=== PATIENT | female | born 1950 | race Caucasian/White ===

== ENCOUNTER 2016-12-02 14:09 | Inpatient (IN) ==
[2016-12-02] MEDS ORDERED: Nitroglycerin 0.4 MG TAB.SUBL SL PRN (14:42)
[2016-12-02] MEDS ORDERED: Fluticasone Propionate Nasal 50 MCG/SPRAY BOTTLE NS PRN (14:42)
--- NOTE | 2016-12-02 14:45 | Internal Med History&Physical ---
Date of Encounter: 12/03/16 Time of Encounter: 14:40 Assessment and Plan (1) Diabetes mellitus Current visit: No Status: Chronic She has a history of insulin-dependent diabetes and control. Hemoglobin A-1 C has been ordered. Her blodd sugars will be monitoered and insulin adjsuted as needed . On sliding scale Its important to have a decent control of her blood sugars for better healing and prevention of infection. Diabetic diet and other counseling provided . 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 She is in rehab rehab protocol will be initiated. We will keep an eye on infection and pain control. Qualifiers: Encounter type: subsequent encounter Fracture type: closed Laterality: left Fracture healing: with routine healing Qualified Code(s): S72.002D - Fracture of unspecified part of neck of left femur, subsequent encounter for closed fracture with routine healing (3) Anemia Current visit: No Status: Chronic History of chronic anemia. Will review your records. Apparently she is followed by hematologists. She did receive 2 units of packed red blood cells during surgery. At the present time she is stable Qualifiers: Anemia type: due to chronic kidney disease Chronic kidney disease stage: stage 3 (moderate) Qualified Code(s): N18.3 - Chronic kidney disease, stage 3 (moderate); D63.1 - Anemia in chronic kidney disease (4) CAD (coronary artery disease) Current visit: No Status: Chronic She has a history of coronary disease status post cavity 2014. She is on all appropriate medications. Present time she does not complain of any chest pain dyspnea) symptoms associated with with her coronaries. Plan is to continue her medications. Qualifiers: Coronary Disease-Associated Artery/Lesion type: bypass graft [place] vs. transplanted heart: [place] heart Associated angina: without angina Qualified Code(s): I25.810 - Atherosclerosis of coronary artery bypass graft(s) without angina pectoris (5) Chronic kidney disease Current visit: No Status: Chronic She has stage III and kidney disease. Will continue to monitor. At the present time she is stable. Qualifiers: Chronic kidney disease stage: stage 3 (moderate) Qualified Code(s): N18.3 - Chronic kidney disease, stage 3 (moderate) Internal Medicine - H&P: HPI Admitted From: Intrahospital Transfer History of present illness: Ms. Mas is a 66 year old female straws was transferred from [facility], status post left hip surgery on Saturday while walking she tripped over and hit concrete on left side and broke her hip. She has a history of coronary artery disease status post cabbage history of hypertension history of insulin- dependent diabetes. Now with complications such as peripheral neuropathy and retinopathy she has a history of macular degeneration on the left side for which she is followed by ophthalmologists. She denied any history of dizziness shortness of breath chest pain or weakness or symptoms suggestive of any stroke during her fall. She has a history of chronic anemia for which she is followed by music adapter. During her surgery she did receive a 2 units of packed RBCs. At the present time other than pain on her left side at the site of surgery she feels pretty good. She denies any chest pains nausea vomiting or diarrhea no complaints of any seizures headaches and dizziness or weakness in her arms or legs. Overall she feels well. Past Med Surg Social Fam HX - Past Medical History Medical history: CHF, coronary artery disease, CVA, diabetes, hyperlipidemia, hypertension, myocardial infarction, renal disease, thyroid disease Psychiatric history: no psych history - Past Surgical History Surgical History: coronary bypass (CABG), other (hystrectomy and oopherctomy) - Social History Smoking Status: Never smoker Smokeless Tobacco Status: No Alcohol use: none Drug use: none - Family History Mother Hx Family Cardiac Disorders: Yes (heart disease) Hx Family Endocrine Disorder: Yes (diabetes) Father Living Status: Still Living Hx Family Neuromuscular Disorders: (stroke) Internal Medicine - H&P: Meds Aspirin [Adult Low Dose Aspirin EC] 81 mg PO DAILY 07/25/15 [History] Docusate Sodium [Dok] 100 mg PO QAM 07/25/15 [History] Ergocalciferol (VITAMIN D2) [Vitamin D2 (50,000 UNIT)] 50,000 unit PO QWEEK 08/05 [History] Fluticasone Propionate Nasal [Flonase] 1 spray NS DAILY PRN 07/25/15 [History] Furosemide [Lasix] 60 mg PO DAILY 07/25/15 [History] Levothyroxine [Synthroid] 112 mcg PO 0630 07/25/15 [History] Loratadine [Claritin] 10 mg PO DAILY 07/25/15 [History] Nitroglycerin [Nitrostat] 0.4 mg SL Q5M PRN 07/25/15 [History] Clopidogrel [Plavix] 75 mg PO DAILY 06/12/16 [History] Isosorbide MONOnitrate [Isosorbide Mononitrate ER] 120 mg PO DAILY 06/12/16 [ History] Rosuvastatin Calcium [Crestor] 20 mg PO HS 06/12/16 [History] Insulin Lispro Protamin/Lispro [Humalog Mix 75-25 Kwikpen] 20 units SQ QPM 10/31 [History] Insulin Lispro Protamin/Lispro [Humalog Mix 75-25 Kwikpen] 30 unit SQ QAM [History] Acetaminophen [Tylenol] 500 mg PO Q6HR PRN 11/28/16 [History] Ferrous Gluconate 324 mg PO DAILY 11/28/16 [History] Metoprolol XL (24 HR) Succ [Toprol Xl] 50 mg PO BID 11/28/16 [History] traZODone [TraZODone] 50 mg PO HS 11/28/16 [History] Enoxaparin [Lovenox] 40 mg SQ DAILY #14 syr 12/01/16 [Rx] Gabapentin [Gralise] 300 mg PO BID #14 tab 12/02/16 [Rx] OxyCODONE Immed Rel [Roxicodone 5 MG] 5 mg PO Q4HR PRN #20 tab 12/02/16 [Rx] Allergies No Known Allergies Allergy (Verified 07/25/15 12:00) All Systems PM: A 10-system review of systems was performed and is negative for pertinent findings except as documented above in the HPI. - Constitutional Constitutional: falls, no anorexia, no chills, no excessive sweating, no fatigue , no malaise, no night sweats, no weakness, no weight gain Additional comments: She has history of frequent falls. She has a history of neuropathy and feels that occasionally she falls. She had been using walker when whenever needed. - EENT Eyes: change in vision, floaters, no decreased night vision, no diplopia, no discharge, no photophobia, no seeing flashes Additional comments: She feels that she she is occasionally see some floaters on her left eye. The history of macular degeneration of the left side and has been receiving injections. She also has a history of far retinopathy on both sides and has received our laser surgery is a bias by her laser beam cutter. Ears: no ear discharge, no ear pain, no tinnitus Nose, mouth and throat: no bleeding gums, no dental pain, no dysphagia, no facial pain, no neck mass, no sinus pain, no sore throat - Breasts Additional comments: No complaints of any discharge from her breasts or any masses. - Cardiovascular Cardiovascular ROS IM: dyspnea on exertion, no chest pain, no claudication, no diaphoresis, no dyspnea, no lightheadedness, no orthopnea, no palpitations, no paroxysmal nocturnal dyspnea, no syncope Additional comments: Her dyspnea is usually on exertion which she relates to her age. No associated chest pains. She has a history of coronary artery disease status post cavity 2015 and she has been doing well status post. . - Respiratory Respiratory: no cough, no dyspnea, no hemoptysis, no dyspnea on exertion, no wheezing, no snoring, no stridor, no pain on inspiration, no pain with cough - Gastrointestinal Gastrointestinal: no abdominal pain, no belching, no bloating, no change in bowel habits, no change in stool character, no constipation, no dysphagia, no heartburn, no hematemesis, no hematochezia, no loose stools, no melena, no vomiting - Genitourinary Genitourinary: amenorrhea, no breast change in shape, no breast mass, no breast swelling, no pelvic pain, no urinary frequency, no urinary hesitancy, no urinary incontinence Menstruation: post hysterectomy - Integumentary Integumentary IM: no non-healing lesions, no pruritus, no rash, no skin ulcer, no sores - Neurological Neurological ROS: numbness, paresthesias, weakness, no abnormal gait, no behavioral changes, no burning sensations, no confusion, no convulsions, no disequilibrium, no dizziness, no tremor(s) Additional comments: She has a long-standing history of insulin-dependent diabetes which has been in control. She has neuropathy on both legs and may be in her hands as well. She does complain of some tingling and dpoor proprioception specially when she walks. - Psychiatric Psychiatric: no confusion, no depression, no difficulty concentrating - Endocrine Endocrine IM: no cold intolerance, no polydipsia, no polyphagia Additional comments: She has a history of hypothyroidism. And his government on and is on medication. - Hematologic/Lymphatic Hematologic/Lymphatic: easy bruising - Constitutional Vitals: Temp Pulse Resp BP Pulse Ox 98.9 F 79 20 125/66 95 12/02/16 14:23 12/02/16 14:23 12/02/16 14:23 12/02/16 14:23 12/02/16 14:23 General appearance: Present: A&O X 3, pleasant, obese - Head Head exam: Present: atraumatic - Eye Eye exam: Present: EOMI, PERRL Pupils: Present: PERRL Additional comments: I examination is within normal limits. From the endoscopy not done. She has a history of retinopathy. - Neck Neck exam general surgery: Present: supple. Absent: lymphadenopathy, tenderness - Respiratory Respiratory exam: Present: CTAB. Absent: chest wall tenderness, rales, respiratory distress, rhonchi, stridor, wheezes, tachypnea - Cardiovascular Cardiovascular exam: Present: RRR. Absent: diastolic murmur, distant heart sounds, gallop, JVD - GI/Abdominal GI/Abdominal exam: Present: normal bowel sounds, soft. Absent: guarding, mass - Additional comments: Examination different not done. - Extremities Exam Extremities exam: Present: full ROM, warm. Absent: tenderness - Back Exam Back exam: Present: normal inspection Additional comments: No local tenderness appreciated. - Neurological Exam Neurological exam: Present: CN II-XII intact, reflexes normal, strengths equal and symetr throughout Additional comments: Her neurological examination is unremarkable criminals are intact. I was unable to assess the strength of low lymphocytes to 200 she is in century. However she was able to raise her left leg. Ankle strength on both sides equal. Upper limb strands are equal on both sides. Coordination acerebellar function seems appropriate and are within normal limits. - Skin Skin exam: Present: petechiae Additional comments: Toe Former and multiple places of small bruises noted most likely secondary to injections or IV sites. Internal Med - H&P Results - Labs CBC & Chem 7: 12/03/16 05:25 12/03/16 05:25
[2016-12-02] MEDS: Cholecalciferol (D-3) 1,000 UNIT TABLET PO SCH (15:38)
[2016-12-02] MEDS ORDERED: Insulin NPH/REG 70/30 100 UNIT/ML (x5UNIT) SQ SCH ×2 (18:00)
[2016-12-02] MEDS ORDERED: Insulin NPH/REG 70/30 300 UNIT/3 ML per UNIT SQ ONE (18:00)
[2016-12-02] MEDS ORDERED: INSULIN LISPRO PROTAMIN SQ SCH (18:00)
[2016-12-02] MEDS ORDERED: [UNRECOGNIZED DRUG - OTHER] SQ SCH (18:00)
[2016-12-02] MEDS ORDERED: LISPRO SQ SCH (18:00)
[2016-12-02] MEDS: *HR* OxyCODONE Immed Rel 5 MG TABLET PO PRN (21:38)
[2016-12-02] MEDS: Metoprolol XL (24 HR) Succ 50 MG TAB.ER.24H PO SCH (21:40)
[2016-12-02] MEDS: Gabapentin 300 MG CAPSULE PO SCH (21:40)
[2016-12-02] MEDS: traZODone 50 MG TABLET PO SCH (21:41)
[2016-12-03 05:58] LABS: Basophils % 0.2 %; Eosinophils # 0.3 K/mcL (0.0-0.6); Eosinophils % 3.6 %; Hematocrit 23.1 % (35.3-44.9); Hemoglobin 7.8 g/dL (11.5-15.4); Immature Granulocytes % 0.6 % (0-4); Lymphocytes # 1.6 K/mcL (0.6-4.6); Lymphocytes % 19.1 %; Mean Corpuscular HGB Conc 33.8 g/dL (31.6-35.5); Mean Corpuscular Hemoglobin 30.2 pg (28.0-33.3); Mean Corpuscular Volume 89.5 fL (83.0-100.0); Mean Platelet Volume 11.1 fL (9.4-12.4); Monocytes % 12.1 %; Neutrophils # 5.2 K/mcL (1.6-8.9); Platelet Count 136 K/mcL (140-400); Red Blood Count 2.58 M/mcL (3.82-4.97); Segmented Neutrophils % 64.4 %
[2016-12-03 06:00] LABS: INR 1.1; Prothrombin Time 11.9 Seconds (9.4-12.1)
[2016-12-03 06:02] LABS: Activated Partial Thrombo Time 23.6 Seconds (26.0-36.0)
[2016-12-03 06:13] LABS: Calcium 8.7 mg/dL (8.6-10.8); Potassium 4.5 mEq/L (3.5-4.5)
[2016-12-03] MEDS: *HR* OxyCODONE Immed Rel 5 MG TABLET PO PRN ×3 (07:05→18:07)
--- NOTE | 2016-12-03 08:12 | Internal Med Progress Note ---
Date of Encounter: 12/03/16 Time of Encounter: 08:10 - Assessment and plan (1) Diabetes mellitus Current Visit: No Status: Chronic Assessment and plan: High blood sugar is 125 this morning. Her medications have been adjusted. Will continue to monitor and adjust insulin as needed. Qualifiers: Diabetes mellitus type: type 2 Diabetes mellitus complication status: with kidney complications Diabetes mellitus complication detail: with chronic kidney disease Diabetes mellitus termite helper insulin use: with shelter use Chronic kidney disease stage: stage 3 (moderate) Qualified Code(s): E11.22 - Type 2 diabetes mellitus with diabetic chronic kidney disease; N18.3 - Chronic kidney disease, stage 3 (moderate); Z79.4 - custodial (current) use of insulin (2) Fracture of hip Current Visit: No Status: Acute Assessment and plan: Status post hip arthroplasty. Her pain is well-controlled. And is in rehab. Qualifiers: Encounter type: subsequent encounter Fracture type: closed Laterality: left Fracture healing: with routine healing Qualified Code(s): S72.002D - Fracture of unspecified part of neck of left femur, subsequent encounter for closed fracture with routine healing (3) Anemia Current Visit: No Status: Chronic Assessment and plan: Chronic history of anemia. Her hemoglobin is 7.8. I also noted to have low platelet counts. This is a chronic condition. She follows his family nurse practitioner. We will continue to monitor and will take appropriate actions as needed. Qualifiers: Anemia type: due to chronic kidney disease Chronic kidney disease stage: stage 3 (moderate) Qualified Code(s): N18.3 - Chronic kidney disease, stage 3 (moderate); D63.1 - Anemia in chronic kidney disease (4) CAD (coronary artery disease) Current Visit: No Status: Chronic Assessment and plan: History of cabbage. No chest pain of the present time. Continue present medications. Qualifiers: Coronary Disease-Associated Artery/Lesion type: bypass graft [place] vs. transplanted heart: [place] heart Associated angina: without angina Qualified Code(s): I25.810 - Atherosclerosis of coronary artery bypass graft(s) without angina pectoris (5) Chronic kidney disease Current Visit: No Status: Chronic Assessment and plan: She has a history of chronic kidney disease insufficiency. Most likely due to her diabetes. Medication needs to be adjusted accordingly. Her renal function is baseline. Qualifiers: Chronic kidney disease stage: stage 3 (moderate) Qualified Code(s): N18.3 - Chronic kidney disease, stage 3 (moderate) - Subjective Interval history: Patient is doing fine. Period her pain is well-controlled. She has tolerated oxycodone and does not feel that it is causing any dizziness for her. Her blood sugars were 125 this morning. She denies any complaints of any chest pains nausea vomiting or diarrhea complaints of any future changes. She is getting ready for rehab - Constitutional Vitals: Temp Pulse Resp BP Pulse Ox 98.7 F 75 18 153/72 94 12/03/16 07:20 12/03/16 07:20 12/03/16 07:20 12/03/16 07:20 12/03/16 07:20 General appearance: Present: A&O X 3, pleasant, obese, answers questions appropriately - Respiratory Respiratory exam: Present: CTAB. Absent: accessory muscle use, chest wall tenderness, respiratory distress, rhonchi, stridor, wheezes, tachypnea - Cardiovascular Cardiovascular exam: Present: RRR. Absent: clicks, diastolic murmur, distant heart sounds, JVD Additional comments: Her cardiac examination is within normal limits. - GI/Abdominal GI/Abdominal exam: Present: normal bowel sounds, soft. Absent: distended, guarding, rigid Internal Medicine: Result - Labs CBC & Chem 7: 12/03/16 05:25 12/03/16 05:25 Labs: Short CBC 12/03/16 Range/Units 05:25 WBC 8.1 (4.3-11.1) K/mcL Hgb 7.8 L (11.5-15.4) g/dL Hct 23.1 L (35.3-44.9) % Plt Count 136 L (140-400) K/mcL Neutrophils # 5.2 (1.6-8.9) K/mcL BMP 12/03/16 05:25 Sodium 139 Potassium 4.5 Chloride 108 Carbon Dioxide 20 BUN 59 H Creatinine 1.80 H Glucose 115 H Calcium 8.7 - ABG Interpretation ABG results: PT/INR, D-dimer PT 11.9 Seconds (9.4-12.1) 12/03/16 05:25 - VTE Deep Vein Thrombosis/Pulmonary Embolism Present on Admission: Yes Consult Discharge Plan - Plan Referrals: Win Clay MD [Primary Care Provider] -
[2016-12-03] MEDS ORDERED: [UNRECOGNIZED DRUG - OTHER] SQ SCH (09:00)
[2016-12-03] MEDS ORDERED: LISPRO SQ SCH (09:00)
[2016-12-03] MEDS ORDERED: INSULIN LISPRO PROTAMIN SQ SCH (09:00)
[2016-12-03] MEDS: Isosorbide MONOnitrate (24 HR) 60 MG TAB.ER.24H PO SCH (09:27)
[2016-12-03] MEDS: Loratadine 10 MG TABLET PO SCH (09:27)
[2016-12-03] MEDS: *HR* Enoxaparin 40 MG/0.4 ML SYRINGE SQ SCH (09:27)
[2016-12-03] MEDS: Gabapentin 300 MG CAPSULE PO SCH ×2 (09:27→20:19)
[2016-12-03] MEDS: Furosemide 20 MG TABLET PO SCH (09:28)
[2016-12-03] MEDS: Aspirin Enteric Coated 81 MG Tablet PO SCH (09:28)
[2016-12-03] MEDS: Cholecalciferol (D-3) 1,000 UNIT TABLET PO SCH (09:29)
[2016-12-03] MEDS: Metoprolol XL (24 HR) Succ 50 MG TAB.ER.24H PO SCH ×2 (09:29→20:19)
[2016-12-03] MEDS: Insulin NPH/REG 70/30 100 UNIT/ML (x5UNIT) SQ SCH (18:06)
[2016-12-03] MEDS: traZODone 50 MG TABLET PO SCH (20:19)
[2016-12-04] MEDS: *HR* OxyCODONE Immed Rel 5 MG TABLET PO PRN ×2 (05:53→11:30)
[2016-12-04] MEDS: Furosemide 20 MG TABLET PO SCH (07:57)
[2016-12-04] MEDS: Metoprolol XL (24 HR) Succ 50 MG TAB.ER.24H PO SCH ×2 (07:58→21:19)
[2016-12-04] MEDS: Isosorbide MONOnitrate (24 HR) 60 MG TAB.ER.24H PO SCH (07:58)
[2016-12-04] MEDS: Gabapentin 300 MG CAPSULE PO SCH ×2 (07:58→21:19)
[2016-12-04] MEDS: Cholecalciferol (D-3) 1,000 UNIT TABLET PO SCH (07:58)
[2016-12-04] MEDS: Aspirin Enteric Coated 81 MG Tablet PO SCH (07:58)
[2016-12-04] MEDS: Loratadine 10 MG TABLET PO SCH (07:58)
[2016-12-04] MEDS: *HR* Enoxaparin 40 MG/0.4 ML SYRINGE SQ SCH (08:01)
[2016-12-04] MEDS ORDERED: D5% in Water 1,000 ML IVC PRN (08:34)
[2016-12-04] MEDS ORDERED: *HR* Dextrose 50 % in Water (Syg) 50 ML SYRINGE IVP PRN (08:34)
[2016-12-04] MEDS ORDERED: Dextrose Gel 15 GM PO PRN ×2 (08:34)
--- NOTE | 2016-12-04 08:37 | Internal Med Progress Note ---
Date of Encounter: 12/04/16 Time of Encounter: 08:34 - Assessment and plan (1) Diabetes mellitus Current Visit: No Status: Chronic Assessment and plan: High blood sugars are slightly slightly high. on Sliding scale. Her blood sugars needs as required.Overall condition stable . 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 She is getting her rehab pain is decent is indecent control. Qualifiers: Encounter type: subsequent encounter Fracture type: closed Laterality: left Fracture healing: with routine healing Qualified Code(s): S72.002D - Fracture of unspecified part of neck of left femur, subsequent encounter for closed fracture with routine healing (3) Anemia Current Visit: No Status: Chronic Assessment and plan: Chronic history of anemia. Her hemoglobin is 7.8. I also noted to have low platelet counts. This is a chronic condition. She follows his geography teacher. We will continue to monitor and will take appropriate actions as needed. Qualifiers: Anemia type: due to chronic kidney disease Chronic kidney disease stage: stage 3 (moderate) Qualified Code(s): N18.3 - Chronic kidney disease, stage 3 (moderate); D63.1 - Anemia in chronic kidney disease (4) CAD (coronary artery disease) Current Visit: No Status: Chronic Qualifiers: Coronary Disease-Associated Artery/Lesion type: bypass graft [place] vs. transplanted heart: [place] heart Associated angina: without angina Qualified Code(s): I25.810 - Atherosclerosis of coronary artery bypass graft(s) without angina pectoris (5) Chronic kidney disease Current Visit: No Status: Chronic Qualifiers: Chronic kidney disease stage: stage 3 (moderate) Qualified Code(s): N18.3 - Chronic kidney disease, stage 3 (moderate) - Subjective Interval history: Patient is doing fine. Period her pain is well-controlled she is participating in her rehab. Denies any chest pain and nausea vomiting or diarrhea. The increase in selling in her legs. Her blood sugar have improved but still requires further management. - Constitutional Vitals: Temp Pulse Resp BP Pulse Ox 98.3 F 68 18 149/74 96 12/04/16 07:31 12/04/16 07:31 12/04/16 07:31 12/04/16 07:31 12/04/16 07:31 General appearance: Present: A&O X 3, pleasant, obese, answers questions appropriately - Respiratory Respiratory exam: Present: CTAB. Absent: accessory muscle use, chest wall tenderness, respiratory distress - Cardiovascular Cardiovascular exam: Present: RRR. Absent: clicks, JVD - GI/Abdominal GI/Abdominal exam: Present: normal bowel sounds, soft. Absent: rebound, rigid Internal Medicine: Result - Labs CBC & Chem 7: 12/03/16 05:25 12/03/16 05:25 - ABG Interpretation ABG results: PT/INR, D-dimer PT 11.9 Seconds (9.4-12.1) 12/03/16 05:25 - VTE Deep Vein Thrombosis/Pulmonary Embolism Present on Admission: Yes Consult Discharge Plan - Plan Referrals: Win Clay MD [Primary Care Provider] -
[2016-12-04] MEDS ORDERED: Insulin NPH/REG 70/30 300 UNIT/3 ML per UNIT SQ ONE (09:00)
[2016-12-04] MEDS: Insulin LISPRO 300 UNITS/3 ML VIAL SQ SCH ×4 (12:20→21:19)
[2016-12-04] MEDS: Insulin NPH/REG 70/30 100 UNIT/ML (x5UNIT) SQ SCH (18:16)
[2016-12-04] MEDS: traZODone 50 MG TABLET PO SCH (21:19)
[2016-12-05] MEDS: *HR* OxyCODONE Immed Rel 5 MG TABLET PO SCH ×2 (06:38→13:18)
[2016-12-05] MEDS: Loratadine 10 MG TABLET PO SCH (07:59)
[2016-12-05] MEDS: Cholecalciferol (D-3) 1,000 UNIT TABLET PO SCH (07:59)
[2016-12-05] MEDS: Isosorbide MONOnitrate (24 HR) 60 MG TAB.ER.24H PO SCH (08:00)
[2016-12-05] MEDS: Furosemide 20 MG TABLET PO SCH (08:00)
[2016-12-05] MEDS: Gabapentin 300 MG CAPSULE PO SCH ×2 (08:00→21:04)
[2016-12-05] MEDS: Metoprolol XL (24 HR) Succ 50 MG TAB.ER.24H PO SCH ×2 (08:00→21:04)
[2016-12-05] MEDS: Aspirin Enteric Coated 81 MG Tablet PO SCH (08:00)
[2016-12-05] MEDS: *HR* Enoxaparin 40 MG/0.4 ML SYRINGE SQ SCH (08:00)
[2016-12-05] MEDS: Insulin NPH/REG 70/30 100 UNIT/ML (x5UNIT) SQ SCH ×2 (09:02→17:19)
[2016-12-05] MEDS: Insulin LISPRO 300 UNITS/3 ML VIAL SQ SCH ×4 (09:03→21:05)
--- NOTE | 2016-12-05 11:02 | Internal Med Progress Note ---
Date of Encounter: 12/05/16 Time of Encounter: 11:00 - Assessment and plan (1) Diabetes mellitus Current Visit: No Status: Chronic Assessment and plan: High blood sugar her medication and insulin was adjusted yesterday. Morning sugar was 100 with no low no symptoms of hypoglycemia will continue to monitor and adjust medications. Qualifiers: Diabetes mellitus type: type 2 Diabetes mellitus complication status: with kidney complications Diabetes mellitus complication detail: with chronic kidney disease Diabetes mellitus halfway insulin use: with oil heaterman use Chronic kidney disease stage: stage 3 (moderate) Qualified Code(s): E11.22 - Type 2 diabetes mellitus with diabetic chronic kidney disease; N18.3 - Chronic kidney disease, stage 3 (moderate); Z79.4 - roasterman (current) use of insulin (2) Fracture of hip Current Visit: No Status: Acute Assessment and plan: High pain is somewhat control. Her oxycodone was adjusted yesterday. We will add medications to relieve constipation. Qualifiers: Encounter type: subsequent encounter Fracture type: closed Laterality: left Fracture healing: with routine healing Qualified Code(s): S72.002D - Fracture of unspecified part of neck of left femur, subsequent encounter for closed fracture with routine healing (3) Anemia Current Visit: No Status: Chronic Assessment and plan: Hemoglobin is stable at the present time. We continue to follow.Next draw Saturday . Add iron Qualifiers: Anemia type: due to chronic kidney disease Chronic kidney disease stage: stage 3 (moderate) Qualified Code(s): N18.3 - Chronic kidney disease, stage 3 (moderate); D63.1 - Anemia in chronic kidney disease (4) CAD (coronary artery disease) Current Visit: No Status: Chronic Assessment and plan: Stable No new change Qualifiers: Coronary Disease-Associated Artery/Lesion type: bypass graft [place] vs. transplanted heart: [place] heart Associated angina: without angina Qualified Code(s): I25.810 - Atherosclerosis of coronary artery bypass graft(s) without angina pectoris (5) Chronic kidney disease Current Visit: No Status: Chronic Assessment and plan: Stable . her base line .Next blood draw on saturday Qualifiers: Chronic kidney disease stage: stage 3 (moderate) Qualified Code(s): N18.3 - Chronic kidney disease, stage 3 (moderate) - Subjective Interval history: Complains of pain and left hip. Her medications were adjusted and it seems that they have helped somewhat. States that while laying down her pain is much better and improved she slept well. Complains of mild constipation and nausea mild .No low blood sugars otherwise she feels well . - Constitutional Vitals: Temp Pulse Resp BP Pulse Ox 98.7 F 81 18 111/62 96 12/05/16 07:00 12/05/16 07:00 12/05/16 07:00 12/05/16 07:00 12/05/16 07:00 General appearance: Present: A&O X 3, pleasant, obese, answers questions appropriately - Eye Eye exam: Present: EOMI, PERRL - Neck Neck exam general surgery: Present: supple - Respiratory Respiratory exam: Present: CTAB. Absent: chest wall tenderness, decreased breath sounds, respiratory distress, rhonchi, stridor - Cardiovascular Cardiovascular exam: Present: RRR. Absent: gallop, JVD - GI/Abdominal GI/Abdominal exam: Present: normal bowel sounds, soft. Absent: distended, firm , guarding - Other Additional findings: No pedal edema . Internal Medicine: Result - Labs CBC & Chem 7: 12/03/16 05:25 12/03/16 05:25 - ABG Interpretation ABG results: PT/INR, D-dimer PT 11.9 Seconds (9.4-12.1) 12/03/16 05:25 - VTE Deep Vein Thrombosis/Pulmonary Embolism Present on Admission: Yes Consult Discharge Plan - Plan Referrals: Win Clay MD [Primary Care Provider] -
[2016-12-05] MEDS ORDERED: *HR* OxyCODONE Immed Rel 5 MG TABLET PO SCH (12:00)
--- NOTE | 2016-12-05 16:06 | Psychological Evaluation ---
Date of Encounter: 12/05/16 Time of Encounter: 15:30 History of Present Illness History of present illness: Ms. Mas is a 66 year old female admitted to [facility] for inpatient rehab following a fall on a concrete porch resulting in a hip fracture and a total left hip replacement. She was seen on this date to assess her current cognitive and emotional functioning. Past Medical History Medical history: Significant for diabetes, chronic anemia, HTN, peripheral neuropathy, chronic kidney disease, coronary artery disease, CHF, macular degeneration, hypothyroidism and a stroke (2013). Ms. Mas also stated that she underwent a triple bypass. - Psychiatric History Additional Psychiatric History: There is no history of psychiatric hospitalization or mental health counseling. She reported that her PCP expressed his concern that she may be depressed but she denied symptoms of depression or anxiety. She acknowledged that she does tend to be a "worrier" and has problems falling asleep because "I can't shut my brain off". Home Medications and Allergies RX: Aspirin [Adult Low Dose Aspirin EC] 81 mg PO DAILY 07/25/15 [History] RX: Docusate Sodium [Dok] 100 mg PO QAM 07/25/15 [History] RX: Ergocalciferol (VITAMIN D2) [Vitamin D2 (50,000 UNIT)] 50,000 unit PO QWEEK 07/25/15 [History] RX: Fluticasone Propionate Nasal [Flonase] 1 spray NS DAILY PRN 07/25/15 [ History] RX: Furosemide [Lasix] 60 mg PO DAILY 07/25/15 [History] RX: Levothyroxine [Synthroid] 112 mcg PO 0630 07/25/15 [History] RX: Loratadine [Claritin] 10 mg PO DAILY 07/25/15 [History] RX: Nitroglycerin [Nitrostat] 0.4 mg SL Q5M PRN 07/25/15 [History] RX: Clopidogrel [Plavix] 75 mg PO DAILY 06/12/16 [History] RX: Isosorbide MONOnitrate [Isosorbide Mononitrate ER] 120 mg PO DAILY 06/12/16 [History] RX: Rosuvastatin Calcium [Crestor] 20 mg PO HS 06/12/16 [History] RX: Insulin Lispro Protamin/Lispro [Humalog Mix 75-25 Kwikpen] 20 units SQ QPM 10/31/16 [History] RX: Insulin Lispro Protamin/Lispro [Humalog Mix 75-25 Kwikpen] 30 unit SQ QAM [History] RX: Acetaminophen [Tylenol] 500 mg PO Q6HR PRN 11/28/16 [History] RX: Ferrous Gluconate 324 mg PO DAILY 11/28/16 [History] RX: Metoprolol XL (24 HR) Succ [Toprol Xl] 50 mg PO BID 11/28/16 [History] RX: traZODone [TraZODone] 50 mg PO HS 11/28/16 [History] Enoxaparin [Lovenox] 40 mg SQ DAILY #14 syr 12/01/16 [Rx] RX: Gabapentin [Gralise] 300 mg PO BID #14 tab 12/02/16 [Rx] RX: OxyCODONE Immed Rel [Roxicodone 5 MG] 5 mg PO Q4HR PRN #20 tab 12/02/16 [Rx] No Known Allergies Allergy (Verified 07/25/15 12:00) Social History - Social History Social History: Ms. Mas and her have been for 47 years. They have 3 children ( 2 sons and 1 daughter). She described her children as "best 3 kids in the world " and reported they are very close as a family. Ms. Mas retired after 32 years with the [employer] in [place]. 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 She has been more limited by her failing eyesight and various chronic health conditions in performing some tasks/activities and reported that she uses a magnifying glass to read but is not able to sew. - Tobacco Use Smoking Status: Never smoker - Alcohol Use Alcohol Use: none Cognitive/Emotional Assessment - Cognitive Ability Additional Findings: Ms. Mas was alert, attentive and fully oriented. Speech was clear, fluent and effective. Thought processes were logical, coherent and goal-directed. There were no signs of delusional ideation or perceptual disturbances. On a measure of delayed recall, she performed within the average range. Verbal comprehension also appeared within the average range. - Emotional Status Additional Findings: Ms. Mas presented as pleasant, friendly and cooperative. She described her mood as "pretty upbeat...happy person". Affect was normal in range and intensity. Mood was somewhat anxious. She acknowledged that she tends to be a "worrier" and reported that she has "good days and bad days" because of her various health problems. We spent some time talking about strategies to reduce her anxiety and tendency to "look for things to worry about". She reported that she tries to "problem solve" or she prays when she feels anxious/worried. She noted that she does not have significant stress in her life and is "truly blessed" but will worry about insignificant things. Assessment & Plan - Diagnosis (1) Adjustment disorder with anxious mood - Treatment Plan Treatment Plan/Recommendations: Ms. Mas appears to be coping fairly well but acknowledged that she tends to be a worrier and this has caused her problems falling asleep and "shutting off" her brain. We reviewed strategies to improve her ability to fall asleep and reduce her worrying behavior. There are no additional recommendations for continued psychological intervention at this time.
[2016-12-05] MEDS: traZODone 50 MG TABLET PO SCH (21:04)
[2016-12-05] MEDS ORDERED: Bisacodyl 10 MG RECTAL SUPPOSITORY RC ONE (23:15)
[2016-12-06] MEDS: Ondansetron ODT 4 MG TAB.RAPDIS SL PRN ×2 (02:01→09:25)
[2016-12-06] MEDS: *HR* OxyCODONE Immed Rel 5 MG TABLET PO SCH (06:37)
--- NOTE | 2016-12-06 07:35 | Internal Med Progress Note ---
Date of Encounter: 12/06/16 Time of Encounter: 07:33 - Assessment and plan (1) Diabetes mellitus Current Visit: Yes Status: Chronic Assessment and plan: H hybrid her medications were adjusted. well-controlled. Continue sliding scale. 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 Her oxycodone was adjusted yesterday. We will add medications to relieve constipation. Although her pain was reasonably well controlled with oxycodone chicken complaining of some nausea and constipation. Ruba is to discontinue oxycodone and switch to time at all symptomatic treatment for nausea and constipation at the present time. we will adjsut tramadol dose as needed. Qualifiers: Encounter type: subsequent encounter Fracture type: closed Laterality: left Fracture healing: with routine healing Qualified Code(s): S72.002D - Fracture of unspecified part of neck of left femur, subsequent encounter for closed fracture with routine healing (3) Anemia Current Visit: Yes Status: Chronic Assessment and plan: Stable CBC ordered for follow-up hemoglobin. On iron supplements. Qualifiers: Anemia type: due to chronic kidney disease Chronic kidney disease stage: stage 3 (moderate) Qualified Code(s): N18.3 - Chronic kidney disease, stage 3 (moderate); D63.1 - Anemia in chronic kidney disease (4) CAD (coronary artery disease) Current Visit: No Status: Chronic Assessment and plan: Stable No new change Qualifiers: Coronary Disease-Associated Artery/Lesion type: bypass graft [place] vs. transplanted heart: [place] heart Associated angina: without angina Qualified Code(s): I25.810 - Atherosclerosis of coronary artery bypass graft(s) without angina pectoris (5) Chronic kidney disease Current Visit: Yes Status: Chronic Assessment and plan: Stable . Since she had been having some vomiting and this evening last evening. Renal profile has been ordered. 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 Does not time she is able to hold her fluids. The nausea and vomiting nausea seems to be related to her pain medications oxycodone. Is to discontinue oxycodone and 6 switch plan is to set your switch her to tramadol. Symptomatic treatment for nausea and vomiting. Qualifiers: Vomiting type: unspecified Qualified Code(s): R11.2 - Nausea with vomiting , unspecified (7) Constipation Current Visit: Yes Status: Acute Assessment and plan: Oxycodone has been disconitnued. Symptomatic treatment . Colace bid . Followup and adjust meds as needed Qualifiers: Constipation type: drug induced constipation Qualified Code(s): K59.03 - Drug induced constipation - Subjective Interval history: Patient had complained of are not the last evening at night she also complained of constipation and had not had bowel movement for the last 2 days denies any fever chills. She has been complaining of some cold however she feels that she has always felt cold or complains of any urinary incontinence or burning sensation. She had a few episodes of vomiting last night was treated symptomatically as well as Dulcolax and Azalea was given with good results. He said her pain medication causes nausea. - Constitutional Vitals: Temp Pulse Resp BP Pulse Ox 98 F 74 12 139/74 96 12/05/16 19:00 12/05/16 19:00 12/05/16 19:00 12/05/16 19:00 12/05/16 19:00 General appearance: Present: A&O X 3, pleasant, obese, answers questions appropriately - Respiratory Respiratory exam: Present: CTAB. Absent: respiratory distress, rhonchi, stridor - Cardiovascular Cardiovascular exam: Present: RRR. Absent: irregular rhythm, JVD, tachycardia Additional comments: No murmurs appreciated. - GI/Abdominal GI/Abdominal exam: Present: normal bowel sounds, soft. Absent: diminished bowel sounds, distended, firm, guarding, rebound, rigid Additional comments: Her abdominal examination is unremarkable. Nontender. All signs are positive. No epigastric or suprapubic tenderness. - Incison Incision: Present: clean and dry Internal Medicine: Result - Labs CBC & Chem 7: 12/03/16 05:25 12/03/16 05:25 - ABG Interpretation ABG results: PT/INR, D-dimer PT 11.9 Seconds (9.4-12.1) 12/03/16 05:25 - VTE Deep Vein Thrombosis/Pulmonary Embolism Present on Admission: Yes Consult Discharge Plan - Plan Referrals: Win Clay MD [Primary Care Provider] -
[2016-12-06] MEDS: Furosemide 20 MG TABLET PO SCH (09:41)
[2016-12-06] MEDS: Cholecalciferol (D-3) 1,000 UNIT TABLET PO SCH (09:42)
[2016-12-06] MEDS: Metoprolol XL (24 HR) Succ 50 MG TAB.ER.24H PO SCH ×2 (09:42→22:06)
[2016-12-06] MEDS: Gabapentin 300 MG CAPSULE PO SCH ×2 (09:42→22:06)
[2016-12-06] MEDS: Loratadine 10 MG TABLET PO SCH (09:43)
[2016-12-06] MEDS: Aspirin Enteric Coated 81 MG Tablet PO SCH (09:43)
[2016-12-06] MEDS: Isosorbide MONOnitrate (24 HR) 60 MG TAB.ER.24H PO SCH (09:43)
[2016-12-06] MEDS: traMADol 50 MG TABLET PO SCH ×3 (09:43→22:07)
[2016-12-06] MEDS: *HR* Enoxaparin 40 MG/0.4 ML SYRINGE SQ SCH (09:44)
[2016-12-06] MEDS: Insulin LISPRO 300 UNITS/3 ML VIAL SQ SCH ×4 (09:44→20:57)
[2016-12-06] MEDS: Insulin NPH/REG 70/30 100 UNIT/ML (x5UNIT) SQ SCH ×2 (09:45→17:48)
[2016-12-06 13:55] LABS: Calcium 8.8 mg/dL (8.6-10.8); Potassium 4.3 mEq/L (3.5-4.5)
[2016-12-06 14:48] LABS: Hematocrit 25.3 % (35.3-44.9); Hemoglobin 8.4 g/dL (11.5-15.4); Mean Corpuscular HGB Conc 33.2 g/dL (31.6-35.5); Mean Corpuscular Hemoglobin 30.4 pg (28.0-33.3); Mean Corpuscular Volume 91.7 fL (83.0-100.0); Mean Platelet Volume 10.5 fL (9.4-12.4); Platelet Count 233 K/mcL (140-400); Red Blood Count 2.76 M/mcL (3.82-4.97); Red Cell Distribution Width 13.8 % (11.5-14.5)
[2016-12-06] MEDS: traZODone 50 MG TABLET PO SCH (22:08)
[2016-12-07 05:31] LABS: Calcium 8.6 mg/dL (8.6-10.8); Potassium 4.3 mEq/L (3.5-4.5)
[2016-12-07] MEDS: Ondansetron ODT 4 MG TAB.RAPDIS SL PRN ×2 (08:00→15:12)
[2016-12-07] MEDS: Insulin LISPRO 300 UNITS/3 ML VIAL SQ SCH ×4 (08:02→21:28)
--- NOTE | 2016-12-07 08:23 | Internal Med Progress Note ---
Date of Encounter: 12/07/16 Time of Encounter: 08:21 - Assessment and plan (1) Diabetes mellitus Current Visit: Yes Status: Chronic Assessment and plan: Kwasi blood sugar continues to be stable. Morning blood sugar have improved.. 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 (2) Fracture of hip Current Visit: Yes Status: Acute Assessment and plan: Stable In rehab and is doing well incision is clean and dry her pain is much better control on tramadol Qualifiers: Encounter type: subsequent encounter Fracture type: closed Laterality: left Fracture healing: with routine healing Qualified Code(s): S72.002D - Fracture of unspecified part of neck of left femur, subsequent encounter for closed fracture with routine healing (3) Anemia Current Visit: Yes Status: Chronic Assessment and plan: No new change stable Qualifiers: Anemia type: due to chronic kidney disease Chronic kidney disease stage: stage 3 (moderate) Qualified Code(s): N18.3 - Chronic kidney disease, stage 3 (moderate); D63.1 - Anemia in chronic kidney disease (4) CAD (coronary artery disease) Current Visit: No Status: Chronic Assessment and plan: Stable Qualifiers: Coronary Disease-Associated Artery/Lesion type: bypass graft [place] vs. transplanted heart: [place] heart Associated angina: without angina Qualified Code(s): I25.810 - Atherosclerosis of coronary artery bypass graft(s) without angina pectoris (5) Chronic kidney disease Current Visit: Yes Status: Chronic Assessment and plan: Her kidney function is has improved. Other electrolytes are also within normal limits. Continue present management. Qualifiers: Chronic kidney disease stage: stage 3 (moderate) Qualified Code(s): N18.3 - Chronic kidney disease, stage 3 (moderate) (6) Nausea & vomiting Current Visit: Yes Status: Acute Assessment and plan: Nausea vomiting is resolved. She is back to her normal self and tolerating food. Qualifiers: Vomiting type: unspecified Qualified Code(s): R11.2 - Nausea with vomiting , unspecified (7) Constipation Current Visit: Yes Status: Acute Assessment and plan: Constipation resolved. Continue present medication. Most likely this was due to opiates. Qualifiers: Constipation type: drug induced constipation Qualified Code(s): K59.03 - Drug induced constipation - Subjective Interval history: Patient is doing much better today. He has not had any vomiting or nausea. Seems that her pain has also improved considerably with the changing medications. He is no longer constipated. Overall she feels much better today. No acute issues at the present time. - Constitutional Vitals: Temp Pulse Resp BP Pulse Ox 97.8 F 70 17 144/72 94 12/07/16 07:00 12/07/16 07:00 12/07/16 07:00 12/07/16 07:00 12/07/16 07:00 General appearance: Present: A&O X 3, pleasant, obese, answers questions appropriately - Eye Eye exam: Present: EOMI, PERRL - ENT ENT exam: Present: normal exam, normal oropharynx - Neck Neck exam general surgery: Present: supple. Absent: tenderness, nuchal rigidity - Respiratory Respiratory exam: Present: CTAB. Absent: accessory muscle use, respiratory distress, rhonchi, stridor, wheezes - Cardiovascular Cardiovascular exam: Present: RRR. Absent: diastolic murmur, JVD - GI/Abdominal GI/Abdominal exam: Present: normal bowel sounds, soft. Absent: diminished bowel sounds, distended, firm, guarding, rigid Internal Medicine: Result - Labs CBC & Chem 7: 12/06/16 13:34 12/07/16 05:00 Labs: Short CBC 12/06/16 Range/Units 13:34 WBC 8.8 (4.3-11.1) K/mcL Hgb 8.4 L (11.5-15.4) g/dL Hct 25.3 L (35.3-44.9) % Plt Count 233 D (140-400) K/mcL BMP 12/06/16 12/07/16 13:34 05:00 Sodium 135 L 136 Potassium 4.3 4.3 Chloride 103 104 Carbon Dioxide 23 24 BUN 63 H 65 H Creatinine 1.59 H 1.46 H Glucose 211 H 116 H Calcium 8.8 8.6 - ABG Interpretation ABG results: PT/INR, D-dimer PT 11.9 Seconds (9.4-12.1) 12/03/16 05:25 - VTE Deep Vein Thrombosis/Pulmonary Embolism Present on Admission: Yes Consult Discharge Plan - Plan Referrals: Win Clay MD [Primary Care Provider] -
[2016-12-07] MEDS: Insulin NPH/REG 70/30 100 UNIT/ML (x5UNIT) SQ SCH ×2 (10:12→17:29)
[2016-12-07] MEDS: Metoprolol XL (24 HR) Succ 50 MG TAB.ER.24H PO SCH ×2 (10:13→21:42)
[2016-12-07] MEDS: Isosorbide MONOnitrate (24 HR) 60 MG TAB.ER.24H PO SCH (10:13)
[2016-12-07] MEDS: Aspirin Enteric Coated 81 MG Tablet PO SCH (10:14)
[2016-12-07] MEDS: Furosemide 20 MG TABLET PO SCH (10:14)
[2016-12-07] MEDS: *HR* Enoxaparin 40 MG/0.4 ML SYRINGE SQ SCH (10:15)
[2016-12-07] MEDS: Cholecalciferol (D-3) 1,000 UNIT TABLET PO SCH (10:15)
[2016-12-07] MEDS: Gabapentin 300 MG CAPSULE PO SCH ×2 (10:15→21:42)
[2016-12-07] MEDS: traMADol 50 MG TABLET PO SCH ×3 (10:15→21:43)
[2016-12-07] MEDS: Loratadine 10 MG TABLET PO SCH (10:15)
--- NOTE | 2016-12-07 14:05 | Event Note ---
Date of Encounter: 12/07/16 Time of Encounter: 14:01 PT came and and shade that Mr. Rojas has had an episode of nausea which started with exercise this episode of nausea was associated with cold sweats she she was somewhat short of breath as well. No dizziness or any other complaints. Earlier I had asked and discuss her nausea and symptoms that patients as well however she did not share any complaints of cold sweats or shortness of breath. Her examination came as the morning with no change. She is not tachycardic. Still having some complaints of nausea. earlier and she was started on Raglan. In presence of this new complaints of sweating and starting up nausea while doing PT this could be symptoms of angina. I will get an EKG cardiac enzymes and avoid doing any PT for now until cardiac issues are ruled out. She has a history of coronary artery diseases diabetes and other associated conditions which puts out on high-risk Her examination was unremarkable Chest essentially clear heart RRR Gi Soft non tendnenress A?P Nausea vomiting . EKG was normal , Troponin negative . I doubt that these episode sof nausea associated with cold sweats were related to angina as there could be multiple reasons . She is on Isosorbide .Will continue to follow. Rest today Ultram stopped , Added Reglan and symptomatic treatment
[2016-12-07] MEDS: traZODone 50 MG TABLET PO SCH (21:43)
[2016-12-08] MEDS: Cholecalciferol (D-3) 1,000 UNIT TABLET PO SCH (08:30)
[2016-12-08] MEDS: Furosemide 20 MG TABLET PO SCH (08:30)
[2016-12-08] MEDS: Aspirin Enteric Coated 81 MG Tablet PO SCH (08:30)
[2016-12-08] MEDS: Isosorbide MONOnitrate (24 HR) 60 MG TAB.ER.24H PO SCH (08:31)
[2016-12-08] MEDS: Insulin LISPRO 300 UNITS/3 ML VIAL SQ SCH ×4 (08:31→21:09)
[2016-12-08] MEDS: Metoprolol XL (24 HR) Succ 50 MG TAB.ER.24H PO SCH ×2 (08:31→21:17)
[2016-12-08] MEDS: Loratadine 10 MG TABLET PO SCH (08:31)
[2016-12-08] MEDS: Gabapentin 300 MG CAPSULE PO SCH ×2 (08:31→21:17)
[2016-12-08] MEDS: *HR* Enoxaparin 40 MG/0.4 ML SYRINGE SQ SCH (08:32)
[2016-12-08] MEDS: Insulin NPH/REG 70/30 100 UNIT/ML (x5UNIT) SQ SCH ×2 (08:36→18:27)
--- NOTE | 2016-12-08 08:59 | Internal Med Progress Note ---
Date of Encounter: 12/08/16 Time of Encounter: 08:57 - Assessment and plan (1) Diabetes mellitus Current Visit: Yes Status: Chronic Assessment and plan: There is one episode of low blood sugars roughly around 1 PM. She had good meal. 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 Seems to be well controlled. . Discontinue tramadol. Use Tylenol for pain as needed. Qualifiers: Encounter type: subsequent encounter Fracture type: closed Laterality: left Fracture healing: with routine healing Qualified Code(s): S72.002D - Fracture of unspecified part of neck of left femur, subsequent encounter for closed fracture with routine healing (3) Anemia Current Visit: Yes Status: Chronic Assessment and plan: Hemoglobin is stable no new change. Qualifiers: Anemia type: due to chronic kidney disease Chronic kidney disease stage: stage 3 (moderate) Qualified Code(s): N18.3 - Chronic kidney disease, stage 3 (moderate); D63.1 - Anemia in chronic kidney disease (4) CAD (coronary artery disease) Current Visit: No Status: Chronic Assessment and plan: CAD is stable. Today she complained of some nausea which was associated with cold sweats. There were 2 episodes which happened during rehab and while she was walking. Terms in the presence of previous coronary artery disease could mimic CAD. EKG and troponin level were negative she is on multiple medications including isosorbide. I doubt that these incidents were cardiac in nature. Will continue to monitor. Qualifiers: Coronary Disease-Associated Artery/Lesion type: bypass graft [place] vs. transplanted heart: [place] heart Associated angina: without angina Qualified Code(s): I25.810 - Atherosclerosis of coronary artery bypass graft(s) without angina pectoris (5) Chronic kidney disease Current Visit: Yes Status: Chronic Assessment and plan: Her creatinine has improved no new change. Can you present medications. Qualifiers: Chronic kidney disease stage: stage 3 (moderate) Qualified Code(s): N18.3 - Chronic kidney disease, stage 3 (moderate) (6) Nausea & vomiting Current Visit: Yes Status: Acute Assessment and plan: Resolved today. Leave that this nausea was primarily due to her opioids. There might be an element of gastroparesis. Plan is to continue Reglan at the present time Qualifiers: Vomiting type: unspecified Qualified Code(s): R11.2 - Nausea with vomiting , unspecified (7) Constipation Current Visit: Yes Status: Acute Assessment and plan: Resolved. Qualifiers: Constipation type: drug induced constipation Qualified Code(s): K59.03 - Drug induced constipation - Subjective Interval history: She has done well overnight. Episodes of consistent nausea and not feeling well has resolved. She has not been taking tramadol for pain or any other medication for pain. Her appetite has been good at night she had a episode of low blood sugars she denies any chest pains any palpitation shortness of breath or nausea. - Constitutional Vitals: Temp Pulse Resp BP Pulse Ox 97.5 F L 77 18 128/62 97 12/08/16 07:57 12/08/16 07:57 12/08/16 07:57 12/08/16 07:57 12/08/16 07:57 General appearance: Present: A&O X 3, pleasant, answers questions appropriately - Head Head exam: Present: normocephalic - Eye Eye exam: Present: EOMI, PERRL - ENT ENT exam: Present: mucous membranes moist, normal oropharynx - Neck Neck exam general surgery: Present: supple. Absent: tenderness, nuchal rigidity - Respiratory Respiratory exam: Present: CTAB Additional comments: Air entry is equal in both lungs. No basil crackles noted. No rhonchi - Cardiovascular Cardiovascular exam: Present: RRR. Absent: clicks, diastolic murmur, JVD Additional comments: No DVD has been laying down flat and sleeps without any pillow. Heart is a regulated rate and rhythm. - GI/Abdominal GI/Abdominal exam: Present: normal bowel sounds, soft. Absent: guarding, rigid Additional comments: Soft nontender abdomen bowel sounds are positive. - Neurological Exam Neurological exam: Present: CN II-XII intact. Absent: no focal deficits Additional comments: No change in neurological examination. "No focal neurological deficit. Internal Medicine: Result - Labs CBC & Chem 7: 12/06/16 13:34 12/07/16 05:00 Labs: Cardiac Enzymes 12/07/16 Range/Units 14:38 Troponin I 0.00 (0-0.03) ng/mL - ABG Interpretation ABG results: PT/INR, D-dimer PT 11.9 Seconds (9.4-12.1) 12/03/16 05:25 - VTE Deep Vein Thrombosis/Pulmonary Embolism Present on Admission: Yes Consult Discharge Plan - Plan Referrals: Win Clay MD [Primary Care Provider] -
[2016-12-08] MEDS: traZODone 50 MG TABLET PO SCH (21:18)
--- NOTE | 2016-12-09 07:42 | Internal Med Progress Note ---
Date of Encounter: 12/09/16 Time of Encounter: 07:40 - Assessment and plan (1) Diabetes mellitus Current Visit: Yes Status: Chronic Assessment and plan: Blood sugars are slightly high. She is on sliding scale insulin. Will adjust medication accordingly. 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 Getting help rehab. Qualifiers: Encounter type: subsequent encounter Fracture type: closed Laterality: left Fracture healing: with routine healing Qualified Code(s): S72.002D - Fracture of unspecified part of neck of left femur, subsequent encounter for closed fracture with routine healing (3) Anemia Current Visit: Yes Status: Chronic Assessment and plan: Stable no new change. Labs for Saturday. Qualifiers: Anemia type: due to chronic kidney disease Chronic kidney disease stage: stage 3 (moderate) Qualified Code(s): N18.3 - Chronic kidney disease, stage 3 (moderate); D63.1 - Anemia in chronic kidney disease (4) CAD (coronary artery disease) Current Visit: No Status: Chronic Assessment and plan: CAD is stable. Continue present medications. No clinical evidence of angina. Qualifiers: Coronary Disease-Associated Artery/Lesion type: bypass graft [place] vs. transplanted heart: [place] heart Associated angina: without angina Qualified Code(s): I25.810 - Atherosclerosis of coronary artery bypass graft(s) without angina pectoris (5) Chronic kidney disease Current Visit: Yes Status: Chronic Assessment and plan: No new change. Stable. Labs ordered for Saturday. Qualifiers: Chronic kidney disease stage: stage 3 (moderate) Qualified Code(s): N18.3 - Chronic kidney disease, stage 3 (moderate) (6) Nausea & vomiting Current Visit: Yes Status: Acute Assessment and plan: Is resolved. Continue Reglan. Qualifiers: Vomiting type: unspecified Qualified Code(s): R11.2 - Nausea with vomiting , unspecified (7) Constipation Current Visit: Yes Status: Acute Assessment and plan: Symptomatic treatment. Qualifiers: Constipation type: drug induced constipation Qualified Code(s): K59.03 - Drug induced constipation - Subjective Interval history: She seems to be doing better. No acute complains of nausea anymore. No chest pains cold sweats her breathing is back to normal. She is sleeping without any pillows. No fever. Chill. She has used Tylenol for her pain and she seems to be satisfied with the results. - Constitutional Vitals: Temp Pulse Resp BP Pulse Ox 98.1 F 61 15 149/83 97 12/09/16 07:00 12/09/16 07:00 12/09/16 07:00 12/09/16 07:00 12/09/16 07:00 General appearance: Present: A&O X 3, pleasant, answers questions appropriately - Eye Eye exam: Present: EOMI, PERRL - ENT ENT exam: Present: mucous membranes moist, normal oropharynx - Neck Neck exam general surgery: Present: supple - Respiratory Respiratory exam: Present: CTAB. Absent: respiratory distress, rhonchi, stridor Additional comments: Chest. 2 auscultation . Entry is equal on both sides know crackles or rales. - Cardiovascular Cardiovascular exam: Present: RRR. Absent: irregular rhythm, JVD Additional comments: Heart is regular rate and rhythm. No collects. No murmurs appreciated. - GI/Abdominal GI/Abdominal exam: Present: normal bowel sounds, soft. Absent: distended, guarding, rigid Additional comments: [place] abdominal examination is unremarkable. Soft bowel sounds are positive. - Other Additional findings: Mild pitting edema on left leg which is surgery site. No tenderness. Internal Medicine: Result - Labs CBC & Chem 7: 12/06/16 13:34 12/07/16 05:00 - ABG Interpretation ABG results: PT/INR, D-dimer PT 11.9 Seconds (9.4-12.1) 12/03/16 05:25 - VTE Deep Vein Thrombosis/Pulmonary Embolism Present on Admission: Yes Consult Discharge Plan - Plan Referrals: Win Clay MD [Primary Care Provider] -
[2016-12-09] MEDS: Isosorbide MONOnitrate (24 HR) 60 MG TAB.ER.24H PO SCH (08:46)
[2016-12-09] MEDS: Metoprolol XL (24 HR) Succ 50 MG TAB.ER.24H PO SCH ×2 (08:46→19:54)
[2016-12-09] MEDS: Furosemide 20 MG TABLET PO SCH (08:47)
[2016-12-09] MEDS: Gabapentin 300 MG CAPSULE PO SCH ×2 (08:47→19:55)
[2016-12-09] MEDS: Aspirin Enteric Coated 81 MG Tablet PO SCH (08:47)
[2016-12-09] MEDS: Cholecalciferol (D-3) 1,000 UNIT TABLET PO SCH (08:47)
[2016-12-09] MEDS: Loratadine 10 MG TABLET PO SCH (08:47)
[2016-12-09] MEDS: Insulin LISPRO 300 UNITS/3 ML VIAL SQ SCH ×4 (08:50→21:20)
[2016-12-09] MEDS: *HR* Enoxaparin 40 MG/0.4 ML SYRINGE SQ SCH (08:50)
[2016-12-09] MEDS: Insulin NPH/REG 70/30 100 UNIT/ML (x5UNIT) SQ SCH ×2 (08:50→17:23)
--- NOTE | 2016-12-09 10:21 | Electrocardiograph Report ---
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
[2016-12-09] MEDS: traZODone 50 MG TABLET PO SCH (19:55)
[2016-12-10 05:22] LABS: Basophils % 0.5 %; Eosinophils # 0.4 K/mcL (0.0-0.6); Eosinophils % 5.7 %; Hematocrit 23.7 % (35.3-44.9); Hemoglobin 7.7 g/dL (11.5-15.4); Immature Granulocytes % 3.2 % (0-4); Lymphocytes # 1.9 K/mcL (0.6-4.6); Lymphocytes % 24.3 %; Mean Corpuscular HGB Conc 32.5 g/dL (31.6-35.5); Mean Corpuscular Hemoglobin 29.5 pg (28.0-33.3); Mean Corpuscular Volume 90.8 fL (83.0-100.0); Mean Platelet Volume 9.4 fL (9.4-12.4); Monocytes # 0.9 K/mcL (0.0-1.3); Neutrophils # 4.3 K/mcL (1.6-8.9); Platelet Count 293 K/mcL (140-400); Red Blood Count 2.61 M/mcL (3.82-4.97); Red Cell Distribution Width 14.1 % (11.5-14.5); Segmented Neutrophils % 55.3 %
[2016-12-10 05:35] LABS: Calcium 8.8 mg/dL (8.6-10.8); Potassium 4.2 mEq/L (3.5-4.5)
--- NOTE | 2016-12-10 07:34 | Internal Med Progress Note ---
Date of Encounter: 12/10/16 Time of Encounter: 07:31 - Assessment and plan (1) Diabetes mellitus Current Visit: Yes Status: Chronic Assessment and plan: Her blood sugar continues to fluctuate. To monitor and adjust medications. 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 Student to rehab. Possible discharge tomorrow Qualifiers: Encounter type: subsequent encounter Fracture type: closed Laterality: left Fracture healing: with routine healing Qualified Code(s): S72.002D - Fracture of unspecified part of neck of left femur, subsequent encounter for closed fracture with routine healing (3) Anemia Current Visit: Yes Status: Chronic Assessment and plan: There is a drop in hemoglobin. no active bleed noted. Her anemia is chronic in nature guaic stool has been requested Qualifiers: Anemia type: due to chronic kidney disease Chronic kidney disease stage: stage 3 (moderate) Qualified Code(s): N18.3 - Chronic kidney disease, stage 3 (moderate); D63.1 - Anemia in chronic kidney disease (4) CAD (coronary artery disease) Current Visit: No Status: Chronic Assessment and plan: No new changes stable. Qualifiers: Coronary Disease-Associated Artery/Lesion type: bypass graft [place] vs. transplanted heart: [place] heart Associated angina: without angina Qualified Code(s): I25.810 - Atherosclerosis of coronary artery bypass graft(s) without angina pectoris (5) Chronic kidney disease Current Visit: Yes Status: Chronic Qualifiers: Chronic kidney disease stage: stage 3 (moderate) Qualified Code(s): N18.3 - Chronic kidney disease, stage 3 (moderate) (6) Nausea & vomiting Current Visit: Yes Status: Resolved Qualifiers: Vomiting type: unspecified Qualified Code(s): R11.2 - Nausea with vomiting , unspecified (7) Constipation Current Visit: Yes Status: Acute Qualifiers: Constipation type: drug induced constipation Qualified Code(s): K59.03 - Drug induced constipation - Subjective Interval history: She is she is doing well range her complaints. No pain or nausea. States that she did not sleep well last night. Denies any shortness of breath chest pains. Otherwise no new complaints. sugar fluctuates but stable. There is a drop in her hemoglobin again. No active site of pleading noted. - Constitutional Vitals: Temp Pulse Resp BP Pulse Ox 98.2 F 69 18 162/82 95 12/10/16 07:27 12/10/16 07:27 12/10/16 07:27 12/10/16 07:27 12/10/16 07:27 General appearance: Present: A&O X 3, pleasant, answers questions appropriately - Eye Eye exam: Present: EOMI, PERRL - ENT ENT exam: Present: mucous membranes moist, normal oropharynx - Neck Neck exam general surgery: Present: supple - Respiratory Respiratory exam: Present: CTAB Additional comments: Air entry equal on both sides. No no crackled noted. - Cardiovascular Cardiovascular exam: Present: RRR. Absent: JVD Additional comments: Her heart rate is regulated. No murmurs or gallops noted - GI/Abdominal GI/Abdominal exam: Present: normal bowel sounds, soft. Absent: diminished bowel sounds, distended Additional comments: Abdomen is soft nontender. Sounds are positive. - Skin Skin exam: Present: mottled (Josef and staining noted on her right arm which she received IV iron) Internal Medicine: Result - Labs CBC & Chem 7: 12/10/16 05:10 12/10/16 05:10 Labs: Short CBC 12/10/16 Range/Units 05:10 WBC 7.7 (4.3-11.1) K/mcL Hgb 7.7 L (11.5-15.4) g/dL Hct 23.7 L (35.3-44.9) % Plt Count 293 (140-400) K/mcL Neutrophils # 4.3 (1.6-8.9) K/mcL BMP 12/10/16 05:10 Sodium 141 Potassium 4.2 Chloride 107 Carbon Dioxide 23 BUN 56 H Creatinine 1.37 H Glucose 140 H Calcium 8.8 - ABG Interpretation ABG results: PT/INR, D-dimer PT 11.9 Seconds (9.4-12.1) 12/03/16 05:25 - VTE Deep Vein Thrombosis/Pulmonary Embolism Present on Admission: Yes Consult Discharge Plan - Plan Referrals: Win Clay MD [Primary Care Provider] -
[2016-12-10] MEDS: Isosorbide MONOnitrate (24 HR) 60 MG TAB.ER.24H PO SCH (07:38)
[2016-12-10] MEDS: Gabapentin 300 MG CAPSULE PO SCH ×2 (07:39→20:27)
[2016-12-10] MEDS: Metoprolol XL (24 HR) Succ 50 MG TAB.ER.24H PO SCH ×2 (07:39→20:27)
[2016-12-10] MEDS: Loratadine 10 MG TABLET PO SCH (07:39)
[2016-12-10] MEDS: Aspirin Enteric Coated 81 MG Tablet PO SCH (07:39)
[2016-12-10] MEDS: *HR* Enoxaparin 40 MG/0.4 ML SYRINGE SQ SCH (07:39)
[2016-12-10] MEDS: Cholecalciferol (D-3) 1,000 UNIT TABLET PO SCH (07:39)
[2016-12-10] MEDS: Furosemide 20 MG TABLET PO SCH (07:39)
[2016-12-10] MEDS: Insulin NPH/REG 70/30 100 UNIT/ML (x5UNIT) SQ SCH ×2 (07:45→18:09)
[2016-12-10] MEDS: Insulin LISPRO 300 UNITS/3 ML VIAL SQ SCH ×4 (07:55→20:29)
--- NOTE | 2016-12-10 11:28 | Physician Discharge Referral ---
- Diagnosis (1) Diabetes mellitus Priority: Secondary Status: Chronic (2) Fracture of hip Priority: Primary Status: Acute (3) Anemia Priority: Secondary Status: Chronic (4) CAD (coronary artery disease) Priority: Secondary Status: Chronic (5) Chronic kidney disease Priority: Secondary Status: Chronic (6) Nausea & vomiting Priority: Secondary Status: Resolved (7) Constipation Priority: Secondary Status: Acute - Respiratory Orders None Smoking Cessation: Smoking cessation has been advised. For more information, call the [place] Tobacco Quit Line at 9-338-VWGA-NOW. - Diet/Nutrition Diet/Nutrition Orders: No Added Salt (HAYLEY) - Activity Activity Orders: Walker - Services Needed Following services are medically necessary services: Nursing, Physical Therapy - Transfer Medications Home Medications: Aspirin [Adult Low Dose Aspirin EC] 81 mg PO DAILY 07/25/15 [History] Docusate Sodium [Dok] 100 mg PO QAM 07/25/15 [History] Ergocalciferol (VITAMIN D2) [Vitamin D2 (50,000 UNIT)] 50,000 unit PO QWEEK 08/05 [History] Fluticasone Propionate Nasal [Flonase] 1 spray NS DAILY PRN 07/25/15 [History] Furosemide [Lasix] 60 mg PO DAILY 07/25/15 [History] Levothyroxine [Synthroid] 112 mcg PO 0630 07/25/15 [History] Loratadine [Claritin] 10 mg PO DAILY 07/25/15 [History] Nitroglycerin [Nitrostat] 0.4 mg SL Q5M PRN 07/25/15 [History] Clopidogrel [Plavix] 75 mg PO DAILY 06/12/16 [History] Isosorbide MONOnitrate [Isosorbide Mononitrate ER] 120 mg PO DAILY 06/12/16 [ History] Rosuvastatin Calcium [Crestor] 20 mg PO HS 06/12/16 [History] Insulin Lispro Protamin/Lispro [Humalog Mix 75-25 Kwikpen] 20 units SQ QPM 10/31 [History] Insulin Lispro Protamin/Lispro [Humalog Mix 75-25 Kwikpen] 30 unit SQ QAM [History] Acetaminophen [Tylenol] 500 mg PO Q6HR PRN 11/28/16 [History] Ferrous Gluconate 324 mg PO DAILY 11/28/16 [History] Metoprolol XL (24 HR) Succ [Toprol Xl] 50 mg PO BID 11/28/16 [History] traZODone [TraZODone] 50 mg PO HS 11/28/16 [History] Enoxaparin [Lovenox] 40 mg SQ DAILY #14 syr 12/01/16 [Rx] Gabapentin [Gralise] 300 mg PO BID #14 tab 12/02/16 [Rx] OxyCODONE Immed Rel [Roxicodone 5 MG] 5 mg PO Q4HR PRN #20 tab 12/02/16 [Rx] Allergies/Adverse Reactions: 3 Allergy/AdvReac Type Severity Reaction Status Date / Time No Known Allergies Allergy Verified 07/25/15 12:00 Certification: Further, I certify that my clinical findings support that this patient is homebound (i.e. absences from home require considerable and taxing effort and are for medical reasons or evangelical services or infrequently or short duration when for other reasons) because: Homebound Reason: Patient requires assistance of a person or device to safely leave home, Leaving home requires considerable and taxing effort due to condition Attestation: My signature below is to certify that this patient is under my care and that I, or nurse practitioner, or a physician's head start assistant teacher working with me, has a face-to -face encounter with this patient.
[2016-12-10] MEDS: traZODone 50 MG TABLET PO SCH ×2 (20:29→21:44)
[2016-12-11 07:14] VITALS: BP 136/74
--- NOTE | 2016-12-11 07:48 | Discharge Summary ---
Date of Encounter: 12/11/16 Time of Encounter: 07:47 - Discharge Diagnosis (1) Diabetes mellitus Priority: Secondary Status: Chronic Comments: Her medications were adjusted during her stay. Overall blood sugars have been reasonably well control. She is to resume taking her insulin as before. 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 Has done well and has been actively participating in rehab. Qualifiers: Encounter type: subsequent encounter Fracture type: closed Laterality: left Fracture healing: with routine healing Qualified Code(s): S72.002D - Fracture of unspecified part of neck of left femur, subsequent encounter for closed fracture with routine healing (3) Anemia Priority: Secondary Status: Chronic Comments: Higher hemoglobin has fluctuated between 8.8 to 7.7. She has a chronic history of anemia. Follow-up will be with her primary care provider operations assistant as needed. In supplements. Qualifiers: Anemia type: due to chronic kidney disease Chronic kidney disease stage: stage 3 (moderate) Qualified Code(s): N18.3 - Chronic kidney disease, stage 3 (moderate); D63.1 - Anemia in chronic kidney disease (4) CAD (coronary artery disease) Priority: Secondary Status: Chronic Comments: Her CAD has been stable during her stay. She denies any chest pains nausea vomiting or shortness of breath at the present time. No changes in her medications are made were made. Qualifiers: Coronary Disease-Associated Artery/Lesion type: bypass graft [place] vs. transplanted heart: [place] heart Associated angina: without angina Qualified Code(s): I25.810 - Atherosclerosis of coronary artery bypass graft(s) without angina pectoris (5) Chronic kidney disease Priority: Secondary Status: Chronic Comments: Her chronic renal insufficiency is back to her baseline. Creatinine at the time of discharge iis around 1.45 Qualifiers: Chronic kidney disease stage: stage 3 (moderate) Qualified Code(s): N18.3 - Chronic kidney disease, stage 3 (moderate) (6) Nausea & vomiting Priority: Secondary Status: Resolved Comments: Talisha episodes of nausea and vomiting. Symptoms have resolved. Qualifiers: Vomiting type: unspecified Qualified Code(s): R11.2 - Nausea with vomiting , unspecified (7) Constipation Priority: Secondary Status: Resolved Comments: Resolved. Qualifiers: Constipation type: drug induced constipation Qualified Code(s): K59.03 - Drug induced constipation - Discharge Medications Home Medications: Aspirin [Adult Low Dose Aspirin EC] 81 mg PO DAILY 07/25/15 [History] Docusate Sodium [Dok] 100 mg PO QAM 07/25/15 [History] Ergocalciferol (VITAMIN D2) [Vitamin D2 (50,000 UNIT)] 50,000 unit PO QWEEK 08/05 [History] Fluticasone Propionate Nasal [Flonase] 1 spray NS DAILY PRN 07/25/15 [History] Furosemide [Lasix] 60 mg PO DAILY 07/25/15 [History] Levothyroxine [Synthroid] 112 mcg PO 0630 07/25/15 [History] Loratadine [Claritin] 10 mg PO DAILY 07/25/15 [History] Nitroglycerin [Nitrostat] 0.4 mg SL Q5M PRN 07/25/15 [History] Clopidogrel [Plavix] 75 mg PO DAILY 06/12/16 [History] Isosorbide MONOnitrate [Isosorbide Mononitrate ER] 120 mg PO DAILY 06/12/16 [ History] Rosuvastatin Calcium [Crestor] 20 mg PO HS 06/12/16 [History] Insulin Lispro Protamin/Lispro [Humalog Mix 75-25 Kwikpen] 20 units SQ QPM 10/31 [History] Insulin Lispro Protamin/Lispro [Humalog Mix 75-25 Kwikpen] 30 unit SQ QAM [History] Acetaminophen [Tylenol] 500 mg PO Q6HR PRN 11/28/16 [History] Ferrous Gluconate 324 mg PO DAILY 11/28/16 [History] Metoprolol XL (24 HR) Succ [Toprol Xl] 50 mg PO BID 11/28/16 [History] traZODone [TraZODone] 50 mg PO HS 11/28/16 [History] Enoxaparin [Lovenox] 40 mg SQ DAILY #14 syr 12/01/16 [Rx] Gabapentin [Gralise] 300 mg PO BID #14 tab 12/02/16 [Rx] OxyCODONE Immed Rel [Roxicodone 5 MG] 5 mg PO Q4HR PRN #20 tab 12/02/16 [Rx] Allergies/Adverse Reactions: 3 Allergy/AdvReac Type Severity Reaction Status Date / Time No Known Allergies Allergy Verified 07/25/15 12:00 Date of admission: 12/02/16 14:09 Primary care physician: Win Clay MD Consults: 12/02/16 14:23 Consult to Occupational Therapy [CONS] Routine Comment: Evaluate, develop and implement POC Reason for Consult: L THR Consult to Physical Therapy [CONS] Routine Comment: Evaluate, develop and implement POC Reason for Consult: L THR Consult to Recreational Therapy [CONS] Routine Comment: Evaluate, develop and implement POC Consult to Golf Superintendent [CONS] Routine Reason for SW Consult: L THR 12/05/16 16:10 Consult to Psychology [CONS] Routine Consulting Provider: Daysi Kenny Reason for Consult: eval Call Completed: Yes - Patient Status Disposition: Home Health Service Condition: Good Functional capacity at discharge: uses cane/walker Overall status at discharge: patient is progressing back to baseline - Discharge Instructions Follow Up With: Win Clay MD [Primary Care Provider] - - Diet and Activity Activity: ambulate only with your walker, as per physical therapy Diet: diabetic diet, low salt diet Hospital course: Ms. Mas is a 66 year old female who was admitted status post arthroplasty ( hip. The significant history of diabetes insulin-dependent with complications such as neuropathy retinopathy and nephropathy. She is also status post cabbage / coronary artery disease. Her stay was complicated with complaints of nausea and one episode of vomiting. Complain about this nausea at the start of her exercise was an episode of cold sweats along with associated nausea while she started her rehab. It is significant history of coronary artery disease and other associated conditions she was ruled out for ND she had them she was treated symptomatically. Her nausea was most likely multiform tutorial. The present time she is back to her baseline. Her pain is well-controlled present management. Her kidney function improved during her stay in his back to her baseline. - Time Spent with Patient Total time spent providing and/or coordinating discharge services: - Constitutional Vitals: Temp Pulse Resp BP Pulse Ox 97.5 F L 74 16 136/74 95 12/11/16 07:00 12/11/16 07:00 12/11/16 07:00 12/11/16 07:00 12/11/16 07:00 General appearance: Present: A&O X 3, pleasant, answers questions appropriately - Eye Eye exam: Present: EOMI - ENT ENT exam: Present: mucous membranes moist, normal exam - Neck Neck exam general surgery: Present: normal inspection. Absent: lymphadenopathy , tenderness, nuchal rigidity - Respiratory Respiratory exam: Present: CTAB. Absent: accessory muscle use, chest wall tenderness, prolonged expiratory phase - Cardiovascular Cardiovascular exam: Present: RRR. Absent: irregular rhythm, JVD, rubs - GI/Abdominal GI/Abdominal exam: Present: normal bowel sounds, soft. Absent: pulsatile mass, rigid, tenderness - [place] Incision: Present: clean and dry, intact - VTE Deep Vein Thrombosis/Pulmonary Embolism Present on Admission: Yes
[2016-12-11] MEDS: Insulin NPH/REG 70/30 100 UNIT/ML (x5UNIT) SQ SCH (08:36)
[2016-12-11] MEDS: Aspirin Enteric Coated 81 MG Tablet PO SCH (08:36)
[2016-12-11] MEDS: Metoprolol XL (24 HR) Succ 50 MG TAB.ER.24H PO SCH (08:36)
[2016-12-11] MEDS: Insulin LISPRO 300 UNITS/3 ML VIAL SQ SCH ×2 (08:36→12:14)
[2016-12-11] MEDS: Gabapentin 300 MG CAPSULE PO SCH (08:36)
[2016-12-11] MEDS: Isosorbide MONOnitrate (24 HR) 60 MG TAB.ER.24H PO SCH (08:37)
[2016-12-11] MEDS: Furosemide 20 MG TABLET PO SCH (08:37)
[2016-12-11] MEDS: Cholecalciferol (D-3) 1,000 UNIT TABLET PO SCH (08:37)
[2016-12-11] MEDS: Loratadine 10 MG TABLET PO SCH (08:37)
[2016-12-11] MEDS: *HR* Enoxaparin 40 MG/0.4 ML SYRINGE SQ SCH (08:42)
== END 2016-12-11 15:30 | disposition home health service (06) | DRG 560 ==
LOC: INPGRE 14:09
PROVIDERS: ADMIT Family Medicine; ATTEND Family Medicine